=== PATIENT | male | born 1965 | race Hispanic/Latino ===

== ENCOUNTER 2017-08-27 13:32 | Emergency (ER) | payer OTHER ==
[~2017-08-27] VITALS: Ht 170.2 cm; Wt 99.8 kg
[2017-08-27 17:50] VITALS: BP 158/60
[2017-08-27] MEDS ORDERED: ZYRTEC10 MG (17:54)
== END 2017-08-27 14:10 | disposition home or self-care (01) ==
LOC: FSED 13:32
DX: B02.9 Zoster without complications (principal)
CPT/HCPCS: 99282

== ENCOUNTER 2018-06-09 09:36 | Emergency (ER) | payer OTHER ==
[~2018-06-09] VITALS: Ht 170.2 cm; Wt 99.8 kg
[~2018-06-09 09:36] MED LIST: ZYRTEC10 MG
== END 2018-06-09 10:22 | disposition home or self-care (01) ==
LOC: FSED 09:36
DX: Z04.1 Encounter for examination and observation following transport accident (principal); V43.52XA Car driver injured in collision with other type car in traffic accident, initial encounter; Y92.488 Other paved roadways as the place of occurrence of the external cause
CPT/HCPCS: 99283

== ENCOUNTER 2020-12-15 20:03 | Emergency (ER) | payer OTHER ==
[~2020-12-15] VITALS: Ht 162.6 cm; Wt 81.6 kg
[2020-12-15] MEDS ORDERED: TESSALON PERLE100 MG PO (22:08)
[2020-12-15] MEDS ORDERED: ZITHROMAX250 MG PO (22:08)
[2020-12-15 22:37] VITALS: BP 162/98
== END 2020-12-15 22:37 | disposition home or self-care (01) ==
LOC: FSED 21:30
DX: R50.9 Fever, unspecified (principal); R05 Cough; J20.9 Acute bronchitis, unspecified; I10 Essential (primary) hypertension; E78.00 Pure hypercholesterolemia, unspecified
CPT/HCPCS: 71045; 99282